=== PATIENT | male | born 1965 | race Caucasian/White ===

== ENCOUNTER 2022-06-10 16:31 | Emergency (ER) | payer MEDICAID, SELFPAY ==
[2022-06-10] VITALS (7 sets, daily range): BP systolic 89–116; BP diastolic 47–84; PULSE 45–109; RESP 14–24; TEMP 40; O2SAT 95–98; BMI 13.8
--- NOTE | ~2022-06-10 | XR_ITS ---
EXAMINATION: XR chest 1V CLINICAL INFORMATION: Reason for Exam Fever, unresponsive, rule out pneumonia COMPARISON: None TECHNIQUE: One view of the chest FINDINGS: Clear lungs. No pneumothorax. Trace pleural fluid along the minor fissure. Cardiac silhouette is moderately enlarged. Remote appearing right rib fracture deformities. XR/XR chest 1V Impression: * Clear lungs. * Cardiac silhouette is moderately enlarged. * Trace pleural fluid along the minor fissure.
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
[2022-06-10] MEDS: 0.9 % Sodium Chloride 1,239 ML 1239 ML IVCONT (17:09)
[2022-06-10 17:13] LABS: MANUAL DIFF FLAG NO
[2022-06-10 17:16] LABS: Basophils Percent Auto 0.1 % (0-2); Eosinophils Percent Auto 0.1 % (0-4); Hemoglobin 13.2 g/dl (14.0-18.0); Imm Gran Abs Auto 0.03 X10*3/uL (0.00-0.03); Imm Gran Pct Auto 0.4 % (0.0-0.4); Monocytes Absolute Auto 0.5 X10*3/uL (0.1-1.2); Monocytes Percent Auto 7.1 % (2-11); PLT CLUMP 1; SCAN SMEAR FLAG 1
[2022-06-10 17:18] LABS: Hematocrit 39.9 % (42.0-52.0); Lymphocytes Absolute Auto 2.5 X10*3/uL (1.2-4.9); Lymphocytes Percent Auto 34.5 % (20-40); Mean Corpuscular HGB Conc 33.1 g/dl (31.0-36.0); Mean Corpuscular Hemoglobin 25.7 pg (27.0-33.0); Mean Corpuscular Volume 77.8 fL (80.0-98.0); Mean Platelet Volume 9.7 fL (9.4-12.4); Neutrophils Absolute Auto 4.2 x10*3/uL (2.0-8.3); Neutrophils Percent Auto 57.8 % (45-73); Red Blood Count 5.13 X10*6/uL (4.60-5.80); Red Cell Distribution Width 18.6 % (11.0-16.0)
[2022-06-10 17:22] LABS: Platelet Count 137 X10*3/uL (160-400); White Blood Count 7.2 X10*3/uL (4.8-10.8)
[2022-06-10 17:25] LABS: Lactic Acid 1.9 mmol/L (0.5-2.0)
[2022-06-10 17:26] LABS: INTERNATIONAL NORM RATIO 1.4 (0.9-1.1); Prothrombin Time 16.1 SEC (10.0-13.1)
[2022-06-10 17:27] LABS: Ethanol < 10 mg/dL
[2022-06-10 17:29] LABS: Partial Thromboplastin Time 32.8 SEC (26.0-36.4)
[2022-06-10 17:31] LABS: Alanine Aminotransferase 41 U/L (0-40); Albumin Level 3.3 g/dL (3.5-5.0); Alkaline Phosphatase 348 U/L (39-117); Anion Gap 15 (12-20); Aspartate Amino Transferase 35 U/L (5-37); Bilirubin Total 2.1 mg/dL (0.0-1.0); Blood Urea Nitrogen 24 mg/dL (9-16); Calcium 7.7 mg/dL (8.4-10.2); Carbon Dioxide 25 mmol/L (22-29); Chloride 95 mmol/L (96-108); Creatinine Clr Calc Pharmacy 39.6; Estimated Glomerular Filt Rate > 60; Glucose Random 73 mg/dL (60-115); Lipase 29 U/L (8-78); Potassium 4.3 mmol/L (3.3-5.1); Sodium 131 mmol/L (135-145)
[2022-06-10] MEDS: cefTRIAXone sodium 1 GM in 0.9 % Sodium Chloride 100 ML IV (17:37)
[2022-06-10] MEDS: Acetaminophen 325 MG TABLET 975 MG PO (17:39)
--- NOTE | 2022-06-10 17:41 | PC.NURSE ---
Difficulty giving Ceftriaxone in timely manor duet to multiple emergencies in department and short staffing.
--- NOTE | 2022-06-10 21:49 | MHC.RECOVSUP ---
? Reason for consult:Overdose o? Current location:ED2 ? o? Identified substance use concern:? -? Overdose ?? Intervention: o? Community resources provided o? Harm reduction discussion ? Plan: o? Follow up tomorrow? o? Patient awaiting case managment ? Additional information:RC spoke with detox facilities about pt, detox will not allow someone that isn't self sufficient. Doctor is keeping pt overnight to speak with case managment.
--- NOTE | 2022-06-11 02:41 | PC.NURSE ---
Pt. in no apparent distress, sleeping comfortably.
--- NOTE | 2022-06-11 04:28 | PC.NURSE ---
I assumed nursing care of Krzysztof at 1900. Krzysztof has been sleeping for the majoprity of my shift, occasionally waking up and screaming out very loudly water! water! despite being encouraged to use the call rivera. He is alert, oriented x 3, drowsy but wakes to verbal stimuli. No chest pain. No SOb. Speech celar and appropriate. We will continue to monitor Krzysztof. Plan: PT/CM monse in the AM.
[2022-06-11 05:08] VITALS: BP 93/70; PULSE 90; RESP 12
--- NOTE | 2022-06-11 08:13 | PC.NURSE ---
nad, ate breakfast, says he's leaving and calling his for a ride, not interested in detox or snf
--- NOTE | 2022-06-11 10:06 | PC.NURSE ---
pt colostomy bag leaked, replaced it and cleaned, dressed the pt, steady gait w walker,
--- NOTE | 2022-06-11 10:38 | MHC.CM.ED ---
Pt left AMA prior to ED CM assessment of d/c needs
== END 2022-06-11 10:08 | disposition home or self-care (01) ==
PROVIDERS: Emergency Provider Emergency Medicine Emergency Medical Services
DX: T40.1X1A Poisoning by heroin, accidental (unintentional), initial encounter (principal); R40.4 Transient alteration of awareness; Y92.810 Car as the place of occurrence of the external cause; F11.90 Opioid use, unspecified, uncomplicated; R45.1 Restlessness and agitation; R53.1 Weakness; R50.9 Fever, unspecified; R63.6 Underweight; Z68.1 Body mass index [BMI] 19.9 or less, adult; I11.0 Hypertensive heart disease with heart failure; I50.20 Unspecified systolic (congestive) heart failure; E78.5 Hyperlipidemia, unspecified; F17.200 Nicotine dependence, unspecified, uncomplicated; Z93.3 Colostomy status
CPT/HCPCS: 36415; 71045; 80053; 82077; 83605; 83690; 85025; 85610; 85730; 87040; 96361; 96365; 99285; J0696